=== PATIENT | male | born 1965 | race Caucasian/White ===

== ENCOUNTER → 2018-05-22 | Outpatient (CLI) | payer OTHER ==
[2018-05-22 12:58] LABS: HEMATOCRIT 44.8 % (42.0-52.0); HEMOGLOBIN 15.8 g/dl (13.5-17.5); MEAN CORPUSCULAR HEMOGLOBIN 32.4 pg (27.0-33.0); MEAN CORPUSCULAR HGB CONC 35.3 g/dl (32.0-36.5); MEAN CORPUSCULAR VOLUME 91.8 fl (80.0-96.0); PLATELET COUNT, AUTOMATED 314 10^3/uL (150-450); RED BLOOD COUNT 4.88 10^6/uL (4.30-6.10); RED CELL DISTRIBUTION WIDTH 13.2 % (11.5-14.5)
[2018-05-22 13:12] LABS: INR 0.93; PROTHROMBIN TIME 12.5 SECONDS (12.1-14.4)
[2018-05-22 13:39] LABS: ERYTHROCYTE SEDIMENTATION RATE 3 mm/hr (0-20)
[2018-05-22 14:01] LABS: ALBUMIN 3.6 GM/DL (3.2-5.2); ALBUMIN/GLOBULIN RATIO 1.24 (1.00-1.93); ALKALINE PHOSPHATASE 77 U/L (45-117); ALT/SGPT 30 U/L (12-78); ANION GAP 6 MEQ/L (8-16); AST/SGOT 19 U/L (7-37); BILIRUBIN,TOTAL 0.4 MG/DL (0.2-1.0); BLOOD UREA NITROGEN 21 MG/DL (7-18); CALCIUM LEVEL 8.3 MG/DL (8.5-10.1); CARBON DIOXIDE LEVEL 27 MEQ/L (21-32); CHLORIDE LEVEL 109 MEQ/L (98-107); CREATININE FOR GFR 1.13 MG/DL (0.70-1.30); GLOMERULAR FILTRATION RATE > 60.0 (>56); GLUCOSE, FASTING 79 MG/DL (70-100); POTASSIUM SERUM 4.8 MEQ/L (3.5-5.1); SODIUM LEVEL 142 MEQ/L (136-145); TOTAL PROTEIN 6.5 GM/DL (6.4-8.2)
== END ==
LOC: M LAB 11:56
DX: Z01.818 Encounter for other preprocedural examination (principal); M13.852 Other specified arthritis, left hip
CPT/HCPCS: 71046

== ENCOUNTER 2018-05-30 10:15 | Inpatient (IN) | payer OTHER ==
[~2018-05-30] VITALS: Ht 172.7 cm; Wt 99.8 kg
[2018-06-15] MEDS ORDERED: IBUP-1114 PO (08:18)
[2018-06-15] MEDS ORDERED: TEST200I14 IM (08:18)
[2018-06-15] MEDS ORDERED: TRAM50TA2 PO (08:18)
--- NOTE | 2018-06-21 09:52 | HPE ---
DATE OF ANTICIPATED ADMISSION: 06/30/2018 ATTENDING PHYSICIAN: Dr. Walter George. CHIEF COMPLAINT: Left hip pain and stiffness. HISTORY: The patient is a pleasant 53-year-old male with progressively worsening left hip pain and stiffness. He failed to improve with conservative measures. He continues to have symptoms with weightbearing activities and activities of daily living. The patient has consented for an elective left total hip arthroplasty with Dr. George for his continued symptoms. CURRENT MEDICATIONS: - testosterone injections 200 mg every 10 days - estradiol 1 mg daily - tramadol 50 mg every evening ALLERGIES: There are NO KNOWN DRUG ALLERGIES. CHRONIC MEDICAL CONDITIONS: Low testosterone with erectile dysfunction History of prostate cancer. PAST SURGICAL HISTORY: Right shoulder rotator cuff repair. Right total hip arthroplasty. Prostatectomy. REVIEW OF SYSTEMS: The patient denies fevers, chills, nausea, vomiting or diarrhea. He denies chest pain, shortness of breath, lightheadedness, dizziness or abdominal pain. He denies any recent upper respiratory or urinary tract infection symptoms. He does continue to have left hip pain with weightbearing activities and activities of daily living. PHYSICAL EXAMINATION: GENERAL: The patient is a well-nourished, well-developed male in no apparent distress. He is alert, oriented and cooperative. Mood and affect are appropriate. VITAL SIGNS: Height 67.75 inches, weight 225.4 pounds, temperature 98.1, blood pressure 105/80, heart rate 75, respirations 21. NECK: Supple without lymphadenopathy. HEART: Regular rate and rhythm. LUNGS: Clear to auscultation bilaterally. ABDOMEN: Soft, nontender to palpation. Bowel sounds are present. MUSCULOSKELETAL: Left hip reveals no gross abnormalities. Skin is intact. There is tenderness to palpation along the groin and lateral hip. The patient does have decreased motion at the hip but has 5/5 strength. The patient's calf is soft, nontender to palpation with no palpable cords noted. He is neurovascularly intact distally. LABORATORY DATA: Chest x-ray: No acute disease. Left hip x-ray notable for end-stage degenerative changes. EKG sinus rhythm. Consider prior inferior wall infarct. Prothrombin time 12.5, INR 0.93. Complete blood count: ESR 3, WBCs 7, RBCs 4.88, hemoglobin 15.8, hematocrit 44.8, platelets 314. Comprehensive metabolic profile: Fasting glucose 78, BUN elevated at 21, creatinine 1.13, GFR greater than 60, sodium 142, potassium 4.8, chloride elevated at 109, carbon dioxide 27, anion gap decreased at 6, calcium decreased at 8.3, AST 19, ALT 30, alkaline phosphatase 77, total bilirubin 0.4, total protein 6.5, albumin 3.6, albumin-globulin ratio 1.24. IMPRESSION: Left hip osteoarthritis with x-rays notable for end-stage degenerative changes. PLAN: The patient has consented for an elective left total hip arthroplasty with Dr. George for his continued symptoms. He will pecan picker his Hibiclens and Bactroban and take as directed.
[2018-06-30] VITALS (9 sets, daily range): BP systolic 115–138; BP diastolic 73–96; O2SAT 98
[2018-06-30] MEDS ORDERED: BUPIVACAINE HCL 0.25% 30 ML VIAL As Ordered ONE (06:54)
[2018-06-30] MEDS ORDERED: TRANEXAMIC ACID 100 MG/ML 10ML VIAL As Ordered ONE ×2 (06:54→07:45)
[2018-06-30] MEDS: BUPIVACAINE LIPOSOME/PF 1.3% 20ML VIAL (13.3MG/ML)(EXPAREL)(C9290 PER1MG) As Ordered ONE ×2 (06:55→09:03)
[2018-06-30] MEDS ORDERED: EPINEPHrine INJ 1 MG/ML 1ML AMP As Ordered ONE ×2 (06:55→07:45)
[2018-06-30] MEDS ORDERED: ceFAZolin 1GM INJ (J0690 PER 500MG) As Ordered ONE (06:55)
[2018-06-30] MEDS ORDERED: PROPOFOL 200 MG/20 ML VIAL As Ordered ONE ×2 (06:59→08:28)
[2018-06-30] MEDS ORDERED: LIDOCAINE 2% INJ 100 MG/5 ML SDV (FOR ANES.) As Ordered ONE (06:59)
[2018-06-30] MEDS ORDERED: MIDAZOLAM INJ 2 MG/2 ML VIAL (J2250) As Ordered ONE (06:59)
[2018-06-30] MEDS ORDERED: ONDANSETRON 4MG/2ML VIAL (J2405) As Ordered ONE (06:59)
[2018-06-30] MEDS ORDERED: dexameTHASONE 4 MG/ML 1ML VIAL (J1100) As Ordered ONE (06:59)
[2018-06-30] MEDS ORDERED: fentaNYL 100 MCG/2 ML INJECTION (J3010) As Ordered ONE (07:00)
[2018-06-30] MEDS ORDERED: LR 1,000 ML IV ONE (07:00)
[2018-06-30] MEDS ORDERED: BUPIVACAINE/DEXTROSE 0.75% 2 ML AMP As Ordered ONE (07:01)
[2018-06-30] MEDS ORDERED: MORPHINE PRES-FREE INJ 10 MG/10 ML VIAL (J2274) As Ordered ONE (07:27)
[2018-06-30] MEDS ORDERED: ePHEDrine SULFATE 25 MG/5 ML(5MG/ML) SYRINGE As Ordered ONE (08:27)
[2018-06-30] MEDS ORDERED: PHENYLephrine HCL 500 MCG/5 ML (100MCG/ML) SYRINGE (J2370) As Ordered ONE ×2 (08:27→08:40)
[2018-06-30] MEDS ORDERED: PHENYLEPHRINE INJ 10MG/ML VIAL (J2370) As Ordered ONE (08:31)
[2018-06-30] MEDS ORDERED: ONDANSETRON 4MG/2ML VIAL (J2405) IV PRN ×3 (09:45→10:15)
[2018-06-30] MEDS: LR 1,000 ML IV SCH ×2 (09:45→23:05)
[2018-06-30] MEDS ORDERED: LR 1,000 ML IV SCH (09:45)
[2018-06-30] MEDS ORDERED: FLEET ENEMA PR PRN (09:45)
[2018-06-30] MEDS ORDERED: PERCOCET 5MG/325MG TAB PO PRN (09:45)
[2018-06-30] MEDS ORDERED: ACETAMINOPHEN TAB 650MG DOSE (2X325MG) PO PRN (09:45)
[2018-06-30] MEDS ORDERED: fentaNYL 100 MCG/2 ML INJECTION (J3010) IV PRN (09:45)
[2018-06-30] MEDS ORDERED: HYDROMORPHONE HCL 0.5 MG/ 0.5 ML SYRINGE (J1170 PER 1) IV PRN (09:45)
[2018-06-30] MEDS ORDERED: MORPHINE 1MG/ML IN 0.9% NACL 100ML IV BAG As Ordered ONE (09:49)
[2018-06-30] MEDS ORDERED: diphenhydrAMINE INJ 50MG/ML VIAL (J1200) IV PRN (10:15)
[2018-06-30] MEDS ORDERED: MORPHINE 1MG/ML IN 0.9% NACL 100ML IV BAG IV PRN (10:15)
[2018-06-30] MEDS ORDERED: EPIDURAL/PCA KEYS XX PRN (10:15)
[2018-06-30] MEDS ORDERED: NALBUPHINE HCL 10 MG/ML AMP (J2300) IV PRN (10:15)
[2018-06-30] MEDS ORDERED: NALOXONE INJ 0.4 MG/1 ML VIAL (J2310) IV PRN (10:15)
--- NOTE | 2018-06-30 10:20 | REP ---
LEFT HIP: Two views. Portably obtained. HISTORY: Postop. FINDINGS: The patient is status post left hip arthroplasty. Position and alignment are normal. Periarticular soft tissues show postoperative emphysematous changes. There are lateral skin alayna. Electronically Signed by Herbert Qureshi MD 06/30/2018 10:39 A
--- NOTE | 2018-06-30 14:42 | CR.PDOC ---
General Date of Consultation: Jun 30, 2018 Consultation REASON FOR CONSULTATION/CHIEF COMPLAINT: Presented to [facility] for an elective left hip arthroplasty with orthopedic surgery HISTORY OF PRESENT ILLNESS: Patient is a 83-year-old male with a past medical history of prostate cancer, testosterone insufficiency and osteoarthritis of the hips who presented to [facility] for an elective left hip arthroplasty with orthopedic surgery. Patient outpatient medical provider is [facility]; he is last visited them approximately 6 months ago. . He has not required any medical clearance for his current procedure. Patient has failed conservative measures and was scheduled for elective surgery. Patient was seen postoperatively. He denies any chest pain, shortness of breath or palpitations. Denies any nausea, vomiting, abdominal pain, constipation, diarrhea or discomfort with urination. Over the last 2 weeks. He denies any recent fevers or chills. He notes his appetite is fairly okay and denies any significant change in his weight. ALLERGIES: Please see below. HOME MEDICATIONS: Please see below. PAST MEDICAL HISTORY: Prostate cancer, Testosterone insufficiency and OA PAST SURGICAL HISTORY: Right shoulder rotator cuff repair (2017) Right total hip arthroplasty (2006) Prostatectomy (2006) Right knee ALC repair (1985) FAMILY HISTORY: - Non-contributory SOCIAL HISTORY: - Denies the use of tobacco or illicit drugs; Social alcohol use - Denies recent travel or sick contacts - Lives with family in [place] - Occupation; manager [employer] OF SYSTEMS: And point review systems complete, all negative otherwise stated in HPI PHYSICAL EXAMINATION: - Vitals: BP 136/89, HR 77, RR 14, Sat 100%NC2L, Temp 97.5F - General: Lying in bed, No acute distress, Speaking in full sentences, AAOx3 - HEENT: NC, AT, PERRLA, EOMI - CVS: RRR, +S1S2, - Murmurs / rubs / gallops - Lungs: Fair air entry bilaterally, Clear to auscultation, No wheezing / rales / rhonchi - Abdomen: Soft, Non-distended, Non-tender - Extremities: No lower extremity edema, No calf tenderness - Neuro: No focal motor or sensory deficit, left hip with dressing in place - Skin: No visible rashes LABORATORY DATA: Please see below. ASSESSMENT/PLAN: Total left hip arthroplasty (POD#0) - Presented to [facility] for an elective left hip arthroplasty with orthopedic surgery - Pain control, anticoagulation and physical therapy at the direction of orthopedic surgery Testosterone insufficiency - Will continue to hold medication - Will have outpatient follow-up with Dr. Victor, patients urologist History of prostate cancer - s/p prostatectomy in 2006 DVT prophylaxis - Anticoagulation as per orthopedic surgery Vital Signs/I&O Vital Signs Date Time Temp Pulse Resp B/P (MAP) Pulse Ox O2 Delivery O2 Flow Rate FiO2 06/30/18 11:45 97.5 77 14 136/89 (105) 100 Nasal Cannula 2.0 Allergies Coded Allergies: No Known Allergies (Verified , 06/15/18) Home Medications Scheduled (Testosterone Cypionate) 200 Mg/Ml Inj, 200 MG IM [id number], (Reported) Ibuprofen (Ibuprofen) 400 Mg Tab, 800 MG PO TID, (Reported) Tramadol HCl (Tramadol HCl) 50 Mg Tab, 50 MG PO QHS, (Reported) MAURO SAVAGE MD Jun 30, 2018 14:42
[2018-07-01 02:00] VITALS: BP 122/62
[2018-07-01 06:00] VITALS: BP 115/69
[2018-07-01] MEDS ORDERED: PERCOCET 5MG/325MG TAB PO PRN (06:45)
[2018-07-01] MEDS ORDERED: ONDANSETRON 4 MG TAB (S0181) PO PRN (06:45)
[2018-07-01 06:48] LABS: HEMATOCRIT 41.3 % (42.0-52.0); HEMOGLOBIN 14.5 g/dl (13.5-17.5); MEAN CORPUSCULAR HEMOGLOBIN 32.4 pg (27.0-33.0); MEAN CORPUSCULAR HGB CONC 35.1 g/dl (32.0-36.5); MEAN CORPUSCULAR VOLUME 92.2 fl (80.0-96.0); PLATELET COUNT, AUTOMATED 288 10^3/uL (150-450); RED BLOOD COUNT 4.48 10^6/uL (4.30-6.10); WHITE BLOOD COUNT 8.7 10^3/uL (4.0-10.0)
[2018-07-01 07:06] LABS: INR 1.23; PROTHROMBIN TIME 15.7 SECONDS (12.1-14.4)
[2018-07-01 07:13] LABS: CALCIUM LEVEL 7.6 MG/DL (8.5-10.1); CREATININE FOR GFR 1.43 MG/DL (0.70-1.30); GLOMERULAR FILTRATION RATE 54.7 (>56); POTASSIUM SERUM 4.1 MEQ/L (3.5-5.1)
[2018-07-01] MEDS ORDERED: PERC5TAB12 PO (07:33)
[2018-07-01] MEDS ORDERED: XARE10TA PO (07:33)
[2018-07-01] MEDS: PERCOCET 5MG/325MG TAB PO PRN ×2 (08:13→12:07)
[2018-07-01] MEDS ORDERED: MOM 30ML SUSPENSION UDC PO SCH (09:00)
[2018-07-01] MEDS ORDERED: SENOKOT S TAB PO SCH (09:00)
[2018-07-01] MEDS ORDERED: MIRALAX *UNIT DOSE* 17GM PACKET PO SCH (09:00)
--- NOTE | 2018-07-01 10:45 | IPNPDOC ---
Text Note Date of Service The patient was seen on 07/01/18. NOTE Subjective: Patient is a 83-year-old male with a past medical history of prostate cancer, testosterone insufficiency and osteoarthritis of the hips who presented to [facility] for an elective left hip arthroplasty with orthopedic surgery. Patient was seen and examined at the bedside. Patient denies any chest pain, shortness breath, palpitations, abdominal pain. He notes that he's been tolerating his diet. Has been drinking a lot of fluid. Denies any urinary discomfort or difficulty. Has not had any bowel movements. However, has noted that he's been able to pass flatus. Objective: Vitals (See below) General: Lying in bed, no acute distress, comfortable, AAOx3 HEENT: NC, AT CVS: RRR, +S1S2 Lungs: Fair air entry b/l, -w/r/r Abdomen: Soft, ND, NT Extremities: - Edema, - Calf tenderness, L hip dressing Assessment and plan: Total left hip arthroplasty (POD#1) - Presented to [facility] for an elective left hip arthroplasty with orthopedic surgery - Pain control, anticoagulation and physical therapy at the direction of orthopedic surgery Elevated Cr - likely 2/2 dehydration - No urinary symptoms / difficulty noted - Bladder scan complete - without any residual fluid in bladder - Advised increased oral hydration; has been drinking fluid - advised to increase intake to >2 liter daily - Will provide follow up BMP for 07/03/18 and follow up with [facility] Hyponatremia (mild) - possibly 2/2 hypotonic hypovolemic etiology - Will continue with oral hydration - Will provide follow up BMP for 07/03/18 and follow up with [facility] Testosterone insufficiency - Will continue to hold medication - Will have outpatient follow-up with Dr. Victor, patients urologist History of prostate cancer - s/p prostatectomy in 2006 DVT prophylaxis - Anticoagulation as per orthopedic surgery VS,Fishbone, I+O VS, Fishbone, I+O Laboratory Tests 07/01/18 06:06 Red Blood Count 4.48, Mean Corpuscular Volume 92.2, Mean Corpuscular Hemoglobin 32.4, Mean Corpuscular Hemoglobin Concent 35.1, Red Cell Distribution Width 12.9, Calcium Level 7.6 L Vital Signs Date Time Temp Pulse Resp B/P (MAP) Pulse Ox O2 Delivery O2 Flow Rate FiO2 07/01/18 08:43 18 Room Air 07/01/18 06:00 98.7 88 115/69 (84) 95 07/01/18 02:00 2.0 I&O- Last 24 Hours up to 6 AM 07/01/18 06:00 Intake Total 4300 ml Output Total 1500 ml Balance 2800 ml MAURO SAVAGE MD Jul 01, 2018 10:45
[2018-07-01] MEDS ORDERED: RIVAROXABAN 10 MG TAB (XARELTO) PO SCH (18:00)
--- NOTE | 2018-07-01 20:29 | IPN ---
DATE: 07/01/2018 CHIEF COMPLAINT: Postoperative day 1, left total hip arthroplasty. HISTORY OF PRESENT ILLNESS: This 53-year-old man is postoperative day 1 from a left total hip arthroplasty. He had a good night. He is feeling well. Minimal pain in the left hip. No complications with the surgery. No numbness or tingling in his foot. He has been getting up to the bathroom. PHYSICAL EXAMINATION: Temperature is 98.7, blood pressure 115/69, pulse rate 88, respiratory rate 18 and 95% BiPAP/CPAP and not on when I saw him. Alert and oriented times three. His mood and affect is normal and pleasant. Bulky dressing on the left hip. He is able to wiggle his toes and dorsiflex and plantar flex his foot. He has normal sensation throughout the foot. His foot is warm and well perfuse and strong dorsalis pedis pulse. LABORATORY EXAMINATION: Still pending this morning. ASSESSMENT AND PLAN: 53-year-old man who is now postoperative day 1 from left total hip arthroplasty. He is already asking if he can go home. I think it is reasonable once he mobilizes appropriately. Still followup the blood work; if that gets done before he is discharged, I will followup on this tomorrow. No concerns with this patient.
--- NOTE | 2018-07-03 13:33 | RO ---
DATE OF PROCEDURE: 06/30/2018 PREOPERATIVE DIAGNOSIS: Left hip osteoarthritis. POSTOPERATIVE DIAGNOSIS: Left hip osteoarthritis. PROCEDURE: Left total hip arthroplasty using a [place] size 6 standard, 54 acetabular component, 36 ceramic head, with a ceramic liner. SURGEON: Walter George MD RADIOLOGICAL TECHNOLOGIST: Fady Wheeler PA-C ANESTHESIA: Spinal. ESTIMATED BLOOD LOSS (EBL): 200. COMPLICATIONS: None. INDICATIONS: A 53-year-old gentleman who has had gradually worsening left hip pain. He has actually been through a prior right hip replacement many years ago by Dr. Reese and has done fairly well with that. He wished to go ahead with a left hip replacement. He had severe arthritis on the x-ray and had failed conservative management. He understood the nature of the procedure, the risks of bleeding, infection, damage to nerves and vessels, persistent pain, wear loosening, dislocation, leg length inequality, blood clots, medical problems, , among others. He and his indicated preoperatively that Dr. 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 DESCRIPTION OF PROCEDURE: The patient taken to the operating room, placed in the right lateral decubitus position on the [place] positioner. The left hip was prepped and draped in the usual sterile fashion. A time-out was performed, and I then created a longitudinal incision over the lateral aspect of the hip. Sharp dissection was carried down through the subcutaneous tissue and controlled hemostasis with the cautery. I then incised the fascia karmen and then divided the anterior 40% of the abductor off and exposed the femoral neck and head. We externally rotated the femur as we did so. 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 I then used the canal-initiating reamer, the canal-finding reamer, the lateralizing reamer and then sequentially reamed up to a size 5, which had a good purchase. This was the size that was used on the contralateral side, and I then cut the neck at approximately three-quarters of a fingerbreadth up from the lesser trochanter, removed the head which was quite flattened and collapsed with severe arthritis. The acetabula was then prepared. Anterior and posterior retractors placed. I removed the soft tissue around the acetabulum and sequentially reamed up to a size 53 reamer. I was able to medialized it a fair amount. Ended up using a 54 cup, which was then placed with the appropriate amount of anteversion and horizontal tilt. This was impacted in place. Excellent fit was noted. I removed some osteophytes from around the acetabulum and then cleaned out the component. We had also irrigated multiple times prior to placement of the cup. I again irrigated and placed the ceramic liner, which was a 54 x 36. The canal was then prepared. I then broached up to a size 5 but was able to countersink this some and ended up reaming to a size 6 and broaching to a size 6, which had a much better fit and fill. There were no fractures noted. I then did a trial reduction with a standard 1.5 neck/head combination. We reduced the hip. It was a little bit on the tight side, but I was able to shuck about 1 mm in full extension. He had a very stable hip in extension external rotation and flexion internal rotation. The soft tissue tension was appropriate with the IT band. I was able to tap down the stem plate lead further and used the calcar planer to remove a little bit more bone proximally. I did this by lateralizing the broach in the canal. We then placed the actual stem after irrigating, and this was a size 6 standard [place]. Impacted it in place. Excellent fit was noted. I was actually able to restore a little bit of the anteversion. The ceramic 36 ball 1.5 was then impacted on the taper. I made sure it was well seated. I had also made sure that the ceramic liner was well seated and flush with the cup. I then reduced the hip, put the hip through range of motion with soft tissue tension, the stability, range of motion. We copiously irrigated, placed the tranexamic acid (TXA) solution deep in the wound, and then repaired the minimus with #1 Vicryl suture. The abductors repaired with #1 Vicryl suture with a couple stitches being placed through bone. Excellent repair was noted. I then irrigated, closed the fascia karmen with #1 Vicryl suture and a running Stratafix in both directions, irrigated, closed the subcutaneous with #2-0 Vicryl and the skin with alayna. Sterile dressing was applied. The patient was taken to recovery room in stable condition. The psych assistant was instrumental in holding retractors and assisting in reducing and dislocating the hip and assisting in wound closure.
== END 2018-07-01 12:50 | disposition home or self-care (01) | DRG 301 ==
LOC: M OR 06-30 05:54 → M MS5PR 06-30 10:34
PROVIDERS: ADMIT Orthopaedic Surgery; ATTEND Orthopaedic Surgery
PROC: 0SRB03Z Replacement of Left Hip Joint with Ceramic Synthetic Substitute, Open Approach (ICD-10-PCS; principal; 2018-06-30 07:30)
DX: M16.12 Unilateral primary osteoarthritis, left hip (principal); Z96.641 Presence of right artificial hip joint; E29.1 Testicular hypofunction; Z85.46 Personal history of malignant neoplasm of prostate; E86.0 Dehydration

== ENCOUNTER 2018-07-06 15:06 | Emergency (ER) | payer OTHER ==
[~2018-07-06] VITALS: Ht 172.7 cm; Wt 102.3 kg
[~2018-07-06 15:06] MED LIST: IBUP-1114 PO; PERC5TAB12 PO; TEST200I14 IM; TRAM50TA2 PO; XARE10TA PO
[2018-07-06 15:49] LABS: BASO # 0.1 10^3/uL (0.0-0.2); BASO % 0.6 % (0.0-1.0); EOS # 0.2 10^3/uL (0.0-0.50); EOS % 2.6 % (0.0-3.0); HEMATOCRIT 44.5 % (42.0-52.0); HEMOGLOBIN 15.4 g/dl (13.5-17.5); LYMPH # 1.7 10^3/uL (1.5-4.5); LYMPH % 20.7 % (24.0-44.0); MEAN CORPUSCULAR HEMOGLOBIN 31.9 pg (27.0-33.0); MEAN CORPUSCULAR HGB CONC 34.6 g/dl (32.0-36.5); MEAN CORPUSCULAR VOLUME 92.1 fl (80.0-96.0); MONO # 0.8 10^3/uL (0.0-0.8); MONO % 9.4 % (0.0-5.0); NEUTROPHILS # 5.5 10^3/uL (1.8-7.7); NEUTROPHILS % 66.5 % (36.0-66.0); PLATELET COUNT, AUTOMATED 470 10^3/uL (150-450); RED BLOOD COUNT 4.83 10^6/uL (4.30-6.10); WHITE BLOOD COUNT 8.2 10^3/uL (4.0-10.0)
[2018-07-06 16:05] LABS: INR 1.07
[2018-07-06 16:13] LABS: ALBUMIN 3.1 GM/DL (3.2-5.2); ALT/SGPT 74 U/L (12-78); BILIRUBIN,TOTAL 0.5 MG/DL (0.2-1.0); BLOOD UREA NITROGEN 18 MG/DL (7-18); C REACTIVE PROTEIN QUANTITATIV 3.93 MG/DL (0.00-0.30); CALCIUM LEVEL 8.3 MG/DL (8.5-10.1); CARBON DIOXIDE LEVEL 28 MEQ/L (21-32); CHLORIDE LEVEL 103 MEQ/L (98-107); CREATININE FOR GFR 1.04 MG/DL (0.70-1.30); GLOMERULAR FILTRATION RATE > 60.0 (>56); GLUCOSE, FASTING 106 MG/DL (70-100); POTASSIUM SERUM 4.5 MEQ/L (3.5-5.1); SODIUM LEVEL 138 MEQ/L (136-145); TOTAL PROTEIN 6.5 GM/DL (6.4-8.2)
[2018-07-06] MEDS ORDERED: PERCOCET 5MG/325MG TAB PO ONE (16:45)
[2018-07-06 16:48] LABS: INFLUENZA A AMPLIFICATION NEGATIVE (NEGATIVE); INFLUENZA B AMPLIFICATION NEGATIVE (NEGATIVE)
--- NOTE | 2018-07-06 17:21 | REP ---
Chest x-ray: Two views. History: Cough. Comparison study: May 22, 2018. Findings: EKG monitoring electrodes overlie the chest. Heart is not enlarged. Lungs are well inflated and clear. The thoracic aorta is somewhat tortuous. Pulmonary vasculature is not increased. No significant bony abnormality. Impression: No active disease. Electronically Signed by Herbert Qureshi MD 07/06/2018 05:12 P
[2018-07-06] MEDS ORDERED: KEFL500C17 PO (17:50)
[2018-07-06 17:54] VITALS: BP 163/95
[2018-07-06] MEDS ORDERED: CEPHALEXIN 500 MG CAP PO ONE (18:00)
[2018-07-06 19:35] LABS: ERYTHROCYTE SEDIMENTATION RATE 41 mm/hr (0-20)
== END 2018-07-06 18:09 | disposition home or self-care (01) ==
LOC: M ED 15:06
DX: J06.9 Acute upper respiratory infection, unspecified (principal); T81.40XA Infection following a procedure, unspecified, initial encounter; X58.XXXA Exposure to other specified factors, initial encounter; Y92.89 Other specified places as the place of occurrence of the external cause; Z96.642 Presence of left artificial hip joint; Z79.01 Long term (current) use of anticoagulants